=== PATIENT | male | born 1975 | race Caucasian/White ===

== ENCOUNTER 2025-06-30 10:32 | Emergency (ER) | payer OTHER, SELFPAY ==
[2025-06-30 10:41] VITALS: BP 149/98; PULSE 75; TEMP 36.8; O2SAT 98; BMI 30.6
--- NOTE | 2025-06-30 10:49 | XR_ITS ---
The [address] [address] Patient Name: TAMAR MARTINEZ MRN: [id number] date: 1975 Sex: M Assigned Patient Location: ER Current Patient Location: ED.MAIN Accession/Order Number: [id number] Exam Date: 06/30/2025 11:06 Report Date: 06/30/2025 11:09 At the request of: WILFRID KU MD Procedure: XR foot RT min 3V RIGHT FOOT - 3 views CLINICAL HISTORY: Lateral pain and swelling for one week. No known injury. COMPARISON: None FINDINGS: Soft tissue swelling is present. No acute bony process is seen. No bony erosions. XR/XR foot RT min 3V IMPRESSION: MILD SOFT TISSUE SWELLING WITHOUT ACUTE BONY PROCESS. Impression dictated by: Luis Pitts Jr. DJanaeOJanae 06/30/2025 11:09 AM Dictation Location: [place] [address] Electronically authenticated by: [id number] Y Date: 06/30/2025 11:09
--- NOTE | 2025-06-30 10:49 | ED_ITS ---
HPI HPI - Extremity Injury (Lower) General Chief Complaint: Extremity Injury, Lower Stated Complaint: LOWER EXTREMITY INJURY Time Seen by Provider: 06/30/25 10:44 Source: patient Mode of arrival: walk-in History of Present Illness HPI Narrative: The patient is a 49-year-old male coming to the ER with a right foot pain that started almost a week ago after he was trying a new to clinic and running in his forefoot first and the floor, the patient mentioned that he took few steps and after that started having pain No other injury no other concerns Related Data Previous Rx's ?Medication ?Instructions ?Recorded naproxen 375 mg tablet 375 mg PO BID PRN pain #20 t abs 06/30/25 Allergies Allergy/AdvReac Type Severity Reaction Status Date / Time No Known Drug Allergies Allergy Verified 06/30/25 10:40 Opioid HPI Opioid Management Most Recent Pain and Opioid Data: Last Pain Scale 9 Today, 10:44 Review of Systems ROS Status of ROS 10 or more systems reviewed and unremark able except as noted in history and below PFSH PFSH Social History Little interest or pleasure in doing things: not at all Feeling down, depressed, or hopeless: not at all Exam Narrative Exam Narrative: Nurses notes and vital signs reviewed and patient is not hypoxic. General: Well-appearing and in no apparent distress. Skin: Warm, dry, no pallor noted. Examination of the right foot: Showed that the patient have edema of the lateral aspect of the foot with no vascular injury detected no hotness and no open wound there is tenderness on palpation of the lateral metatarsals mostly at the 4th and 5th Constitutional Vital Signs, click to edit/add: Last Vital Signs Temp 98.3 F 06/30/25 10:41 Pulse 75 06/30/25 10:41 Resp 16 06/30/25 10:41 BP 149/98 H 06/30/25 10:41 Pulse Ox 98 06/30/25 10:41 O2 Del Method Room Air 06/30/25 10:41 Course Vital Signs Vital signs: Vital Signs Temperature 98.3 F 06/30/25 10:41 Pulse Rate 75 06/30/25 10:41 Respiratory Rate 16 06/30/25 10:41 Blood Pressure 149/98 H 06/30/25 10:41 Pulse Oximetry 98 06/30/25 10:41 Oxygen Delivery Method Room Air 06/30/25 10:41 Temperature 98.3 F 06/30/25 10:41 Pulse Rate 75 06/30/25 10:41 Respiratory Rate 16 06/30/25 10:41 Blood Pressure 149/98 H 06/30/25 10:41 Pulse Oximetry 98 06/30/25 10:41 Oxygen Delivery Method Room Air 06/30/25 10:41 MDM - Extremity Injury (Lower) MDM Narrative Medical decision making narrative: X-ray of the patient right foot shows some edema but there is no acute fracture The patient mentioned that he have a walking boot at home that he might be using which I recommended I did also provide him with a Luices wrap here in the ER and referred to podiatry as outpatient NSAIDs for pain and rest The patient is to follow up with primary care physician in next 2-3 days or to return to the emergency department should any of the signs or symptoms worsen or new symptoms develop. The patient agrees with the following Diagnosis and Treatment plan and the patient will be discharged home. Discharge Plan Discharge Chief Complaint: Extremity Injury, Lower Clinical Impression: Metatarsalgia, Acute foot pain Patient Disposition: Home, Self-Care Time of Disposition Decision: 11:36 Condition: Good Prescriptions / Home Meds: New naproxen 375 mg tablet 375 mg PO BID PRN (Reason: pain) Qty: 20 0RF Print Language: Gambian Instructions: Arthralgia (ED), Metatarsalgia (DC) Referrals: Physician,Non-Staff, MD [Primary Care Provider] - 1 week Ran Banuelos DPM [Physician, Podiatry] - 1 week Discharge Date/Time: 06/30/25 11:52
--- OUTSIDE RECORDS SUMMARY | 2025-06-30 10:51 | XMS_ITS | Encounter Summary ---
Author Organization [facility] Address [address] [place] [address] Care Team Providers Care Tar Heater Operator Name Role Phone Geoff Veliz MD Primary Care Provider [phone] Fatou Díaz APRN.LAND SALES AGENT Unavailable [phone] Source Comments In the event this information is protected by the Federal Confidentiality of Alcohol and Drug AbusePatient Records regulations: The Federal rules restrict any use of the information to criminally investigate or prosecute any alcohol or drug abuse patient.[facility] Encounter Details Date Type Department Care Team (Late st Contact Info) Description 06/13/2025 Patient Msg HOSP MAIN H060 [address] [place] [address] Provider, Ccf : Sign up to manage your digestive symptoms in between visits, covered by insurance Social History Tobacco Use Types Packs/Day Years Used Date Smoking Tobacco: Former Cigarettes 1.5 10 0 11/30/2001 - 11/30/2011 Smokeless Tobacco: Never Alcohol Use Standard Drinks/Week Comments Yes 0 (1 standard drink = 0.6 oz pur e alcohol) 2 beers weekly [facility] Utilities Answer Date Recorded In the past 12 months has eshtery, gas, oil, or water company threatened to shut off services in your home? No 01/30/2025 Social Connection and Isolat ion Panel [NHANES] Answer Date Recorded In a typical week, how many times do you talk on the phone with family, friends, or neighbors? More than three times a week 01/30/2025 How often do you get togethe r with friends or relatives? Once a week 01/30/2025 How often do you attend chur ch or orthodox services? Never 01/30/2025 Do you belong to any clubs o r organizations such as yazidism groups, unions, fraternal or athletic groups, or school groups? No 01/30/2025 How often do you attend meet ings of the clubs or organizations you belong to? Patient declined 01/30/2025 Are you , , di vorced, , never , or living with a partner? Living with partner 01/30/2025 AUDIT-C Answer Date Recorded Q1: How often do you have a drink containing alc ohol? 2-4 times a month 01/30/2025 Q2: How many drinks containi ng alcohol do you have on a typical day when you are drinking? 3 or 4 01/30/2025 Q3: How often do you have si x or more drinks on one occasion? Less than monthly 01/30/2025 Overall Financial Resource Strain (CARDIA) Answe r Date Recorded How hard is it for you to pa y for the very basics like food, housing, medical care, and heating? Not hard at all 01/30/2025 PHQ-2 Answer Date Recorded PHQ-2 score 2 01/30/2025 [facility] - Occupational Stress Questionnaire Answer Date Recorded Do you feel stress - tense, restless, nervous, or anxious, or unable to sleep at night because your mind is troubled all the time - these days? To some extent 01/30/2025 Exercise Vital Sign Answer Date Recorde d On average, how many days pe r week do you engage in moderate to strenuous exercise (like a brisk walk)? 2 days 01/30/2025 On average, how many minutes do you engage in exercise at this level? 30 min 01/30/2025 Hunger Vital Sign Answer Date Recorded Within the past 12 months, y ou worried that your food would run out before you got the money to buy more. Never true 01/31/20 25 Within the past 12 months, t he food you bought just didn't last and you didn't have money to get more. Never true 01/30/2025 PRAPARE - Transportation Answer Date Re corded In the past 12 months, has l ack of transportation kept you from medical appointments or from getting medications? No 04/2025 In the past 12 months, has l ack of transportation kept you from meetings, work, or from getting things needed for daily living? No 01/30/2025 Housing Stability Vital Sign Answer Esequiel e Recorded In the last 12 months, was t here a time when you were not able to pay the mortgage or rent on time? No 01/30/2025 Number of Times Moved in the Last Year Not on fi le 01/30/2025 Homeless in the Last Year Not on file 2024 Area Deprivation Index Answer Date Cristóbal rded National Score (1-100), lower number is lower ri sk 87 07/14/2023 State Score (1-10), lower number is lower risk 8 07/14/2023 Data from: https://www.neighborhoodatlas.medicine.[facility].edu/. 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 Answer Date of Assessment Author No 04/09/2014 3:19 PM Kaelyn Kirkpatrick (Corrina) (Hist), [place] * Are you blind or do you have serious difficulty seeing, even when wearing glasses? Answer Date of Assessment Author No 04/09/2014 3:19 PM Kaelyn Kirkpatrick (Corrina) (Hist), [place] * Do you have serious difficulty walking or climbing stairs? Answer Date of Assessment Author Yes 04/09/2014 3:19 PM Kaelyn Kirkpatrick (Corrina) (Hist), [place] * Do you have difficulty dressing or bathing? Answer Date of Assessment Author No 04/09/2014 3:19 PM Kaelyn Kirkpatrick) (Hist), [place] * Because of a physical, mental, or emotional condition, do you have difficulty doing errands alone such as visiting a doctor's office or shopping? Answer Date of Assessment Author No 04/09/2014 3:19 PM EDT Kaelyn Nickerson) (Hist)CORRINA documented as of this encounter Mental Status * Because of a physical, mental, or emotional condition, do you have serious difficulty concentrating, remembering, or making decisions? Answer Entry Date Author No 04/09/2014 3:19 PM EDT Kaelyn Nickerson) (Hist)CORRINA documented in this encounter Plan of Treatment Not on file documented as of this encounter Visit Diagnoses Not on filedocumented in this encounter Care Teams Tar Heater Operator Relationship Specialty Start Date End Date Geoff Veliz MD [address] [place] [address] PCP - General Internal Medicine 12/12/22 Fatou Díaz, MULTINEEDLE SHIRRER.[facility] [address] [place] [address] Edge Cutting Machine Operator Family Medicine 11/03/24 documented as of this encounter
--- OUTSIDE RECORDS SUMMARY | 2025-06-30 10:51 | XMS_ITS | Encounter Summary ---
Author Organization [facility] Address [address] [place] [address] Care Team Providers Care Wafer Fab Operator Name Role Phone Geoff Veliz MD Primary Care Provider [phone] Denise Herman PA-C Unavailable [phone] Fatou Díaz APRN.CIGAR TOBACCO PROCESSING SUPERVISOR Unavailable + [phone] Source Comments In the event this information is protected by the Federal Confidentiality of Alcohol and Drug AbusePatient Records regulations: The Federal rules restrict any use of the information to criminally investigate or prosecute any alcohol or drug abuse patient.[facility] Encounter Details Date Type Department Care Team (Late st Contact Info) Description 12/16/2022 Get Medical Advice Internal Medicine [address] [address] Geoff Veliz MD [address] [place], [place] [id number] Test Results Social History Tobacco Use Types Packs/Day Years Used Date Smoking Tobacco: Former Cigarettes 1.5 10 0 11/30/2001 - 11/30/2011 Smokeless Tobacco: Never Alcohol Use Standard Drinks/Week Comments Yes 0 (1 standard drink = 0.6 oz pur e alcohol) 2 beers weekly PHQ-2 Answer Date Recorded PHQ2 Score 0 08/29/2018 Area Deprivation Index Answer Date Cristóbal rded National Score (1-100), lower number is lower ri sk Not on file 11/01/2020 State Score (1-10), lower number is lower risk N ot on file 11/01/2020 Data from: https://www.neighborhoodatlas.medicine.[facility]/. 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 Answer Date of Assessment Author No 04/09/2014 3:19 PM EDT Kaelyn Nickerson (Josiah) (Hist), [place] * Are you blind or do you have serious difficulty seeing, even when wearing glasses? Answer Date of Assessment Author No 04/09/2014 3:19 PM EDT Kaelyn Nickerson (Josiah) (Hist), [place] * Do you have serious difficulty walking or climbing stairs? Answer Date of Assessment Author Yes 04/09/2014 3:19 PM Kaelyn Kirkpatrick (Josiah) (Hist), [place] * Do you have difficulty dressing or bathing? Answer Date of Assessment Author No 04/09/2014 3:19 PM EDT Kaelyn Nickerson (Josiah) (Hist), [place] * Because of a physical, mental, or emotional condition, do you have difficulty doing errands alone such as visiting a doctor's office or shopping? Answer Date of Assessment Author No 04/09/2014 3:19 PM JOET Kaelyn Nickerson (Josiah) (Hist), [place] documented as of this encounter Mental Status * Because of a physical, mental, or emotional condition, do you have serious difficulty concentrating, remembering, or making decisions? Answer Entry Date Author No 04/09/2014 3:19 PM Kaelyn Kirkpatrick (Josiah) (Hist), [place] documented in this encounter Plan of Treatment Not on file documented as of this encounter Visit Diagnoses Not on filedocumented in this encounter Care Teams Wafer Fab Operator Relationship Specialty Start Date End Date Geoff Veliz MD [address] [place] [address] PCP - General Internal Medicine 12/12/22 Denise Herman PA-C [facility] [place], [place] [phone] Margin Trimmer Internal Medicine 11/03/24 11/28/24 Fatou Díaz, LADLE OPERATOR.[facility] [address] [place] [address] [phone] Margin Trimmer Family Medicine 11/03/24 documented as of this encounter
--- OUTSIDE RECORDS SUMMARY | 2025-06-30 10:51 | XMS_ITS | Encounter Summary ---
Author Organization [facility] Address [address] [place] [address] Care Team Providers Care Orthopaedic Doctor Name Role Phone Juan Hansen MD Primary Care Provider [phone] Christiane Razo MD Primary Care Provider Geoff Veliz MD Primary Care Provider [phone] Denise Herman PA-C Unavailable [phone] Fatou Díaz APRN.PROGRAM ENGAGEMENT DIRECTOR Unavailable + [phone] Source Comments In the event this information is protected by the Federal Confidentiality of Alcohol and Drug AbusePatient Records regulations: The Federal rules restrict any use of the information to criminally investigate or prosecute any alcohol or drug abuse patient.[facility] Encounter Details Date Type Department Care Team (Late st Contact Info) Description 02/08/2013 Patient Msg Medical Records [facility] [place] [address] Provider, Ccf Social History Tobacco Use Types Packs/Day Years Used Date Smoking Tobacco: Former Cigarettes 1.5 10 0 12/09/2001 - 12/09/2011 Alcohol Use Standard Drinks/Week Comments No 0 (1 standard drink = 0.6 oz pure alcohol) more than a social drinker ( 30 to 40 per week) Sex and Gender Information Value Date Recorded Sex Assigned at Not on file Legal Sex Male 7:31 AM EST Gender Identity Not on file Sexual Orientation Not on file 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 Not on file Not on file documented as of this encounter Plan of Treatment Not on file documented as of this encounter Visit Diagnoses Not on filedocumented in this encounter Care Teams Orthopaedic Doctor Relationship Specialty Start Date End Date Juan Hansen MD PCP - General 07/01/05 08/31/20 [place] [id number] [facility] [address] [address] PCP - General Internal Medicine 09/01/20 12/11/22 Geoff Veliz MD [address] [place] [address] PCP - General Internal Medicine 12/12/22 Denise Herman PA-C [address] [place] [address] Patient Access Coordinator Internal Medicine 11/03/24 11/28/24 Fatou Díaz, BUDGET SPECIALIST.[facility] [address] [place] [address] Patient Access Coordinator Family Medicine 11/03/24 documented as of this encounter
--- OUTSIDE RECORDS SUMMARY | 2025-06-30 10:51 | XMS_ITS | Encounter Summary ---
Author Organization [facility] Address [address] [place] [address] Care Team Providers Care Hvac/R Service Technician Name Role Phone Geoff Veliz MD Primary Care Provider [phone] Denise Herman PA-C Unavailable [phone] Fatou Díaz APRN.MORTGAGE OPERATIONS MANAGER Unavailable [phone] Source Comments In the event this information is protected by the Federal Confidentiality of Alcohol and Drug AbusePatient Records regulations: The Federal rules restrict any use of the information to criminally investigate or prosecute any alcohol or drug abuse patient.[facility] Encounter Details Date Type Department Care Team (Late st Contact Info) Description 12/15/2022 Abstract Neurology [address] [place] [address] Main, Sleep Center [address] [place] [phone] Social History Tobacco Use Types Packs/Day Years [...] N ot on file 11/01/2020 Data from: https://www.neighborhoodatlas.medicine.[facility]/. 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 Answer Date of Assessment Author No 04/09/2014 3:19 PM Kaelyn Kirkpatrick (Corrina) (Hist)CORRINA * Are you blind or do you have serious difficulty seeing, even when wearing glasses? Answer Date of Assessment Author No 04/09/2014 3:19 PM Kaelyn Kirkpatrick (Corrina) (Hist), [place] * Do you have serious difficulty walking or climbing stairs? Answer Date of Assessment Author Yes 04/09/2014 3:19 PM EDT Kaelyn Nickerson (Corrina) (Hist), [place] * Do you have difficulty dressing or bathing? Answer Date of Assessment Author No 04/09/2014 3:19 PM Kaelyn Kirkpatrick (Corrina) (Hist), [place] * Because of a physical, mental, or emotional condition, do you have difficulty doing errands alone such as visiting a doctor's office or shopping? Answer Date of Assessment Author No 04/09/2014 3:19 PM Kaelyn Kirkpatrick (Corrina) (Hist), [place] documented as of this encounter Mental Status * Because of a physical, mental, or emotional condition, do you have serious difficulty concentrating, remembering, or making decisions? Answer Entry Date Author No 04/09/2014 3:19 PM Kaelyn Kirkpatrick (Corrina) (Hist), CORRINA documented in this encounter Plan of Treatment Not on file documented as of this encounter Visit Diagnoses Not on filedocumented in this encounter Care Teams Hvac/R Service Technician Relationship Specialty Start Date End Date Geoff Veliz MD [address] [place] [id number] PCP - General Internal Medicine 12/12/22 Denise Herman PA-C [address] [place] [address] Shuttle Van Driver Internal Medicine 11/03/24 11/28/24 Fatou Díaz, ASSEMBLY LINE MACHINE OPERATOR.[facility] [address] [place] [id number] Shuttle Van Driver Family Medicine 11/03/24 documented as of this encounter
--- OUTSIDE RECORDS SUMMARY | 2025-06-30 10:51 | XMS_ITS | Encounter Summary ---
Author Organization [facility] Address [address] [place] [address] Care Team Providers Care Rare/Endangered Species Specialist Name Role Phone Geoff Veliz MD Primary Care Provider [phone] Denise Herman PA-C Unavailable [phone] Fatou Díaz APRN.BIODIESEL PRODUCT MANAGER Unavailable [phone] Source Comments In the event this information is protected by the Federal Confidentiality of Alcohol and Drug AbusePatient Records regulations: The Federal rules restrict any use of the information to criminally investigate or prosecute any alcohol or drug abuse patient.[facility] Encounter Details Date Type Department Care Team (Late st Contact Info) Description 06/05/2024 Patient Msg Internal Medicine [facility] [address] [place] [address] Geoff Veliz MD [address] [place], [place] [phone] Appointment Request Social History Tobacco Use Types Packs/Day Years [...] is lower risk 8 07/14/2023 Data from: https://www.neighborhoodatlas.medicine.[facility].edu/. 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
--- OUTSIDE RECORDS SUMMARY | 2025-06-30 10:51 | XMS_ITS | Encounter Summary ---
Author Organization [facility] Address [address] [place] [address] Care Team Providers Care Sandwich And Drink Cart Operator Name Role Phone Geoff Veliz MD Primary Care Provider [phone] Denise Herman PA-C Unavailable [phone] Fatou Díaz APRN.CHIEF LIBRARIAN CIRCULATION DEPARTMENT Unavailable + [phone] Source Comments In the event this information is protected by the Federal Confidentiality of Alcohol and Drug AbusePatient Records regulations: The Federal rules restrict any use of the information to criminally investigate or prosecute any alcohol or drug abuse patient.[facility] Encounter Details Date Type Department Care Team (Late st Contact Info) Description 11/30/2023 Patient Msg Internal Medicine [facility] [address] [place] [address] Geoff Veliz MD [address] [place], [place] [phone] Appointment Request (HM) Social History Tobacco Use Types Packs/Day Years [...] is lower risk 8 07/14/2023 Data from: https://www.neighborhoodatlas.[facility]/. 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 Not on file [...] Yes 04/09/2014 3:19 PM EDT Kaelyn Nickerson (Josiah) [...] PM EDT Kaelyn Nickerson (Josiah) (Hist), [place] documented as [...] on filedocumented in this encounter Care Teams Sandwich And Drink Cart Operator Relationship Specialty Start Date End Date Geoff Veliz MD [address] [place] [address] PCP - General Internal Medicine 12/12/22 Denise Herman PA-C [address] [place], [place] [phone] Grazing Examiner Internal Medicine 11/03/24 11/28/24 Fatou Díaz, PROFESSOR OF MEDICINE.[facility] [address] [place] [address] [phone] Grazing Examiner Family Medicine 11/03/24 documented as of this encounter
--- OUTSIDE RECORDS SUMMARY | 2025-06-30 10:52 | XMS_ITS | Clinical Summary ---
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/2017 Genital herpes, unspecified Anxiety state, unspecified Encounters Date Type Department Care Team Description 06/13/2025 Patient Msg HOSP MAIN H060 [address] [place] [address] Provider, Ccf : Sign up to manage your digestive symptoms in between visits, covered by insurance from Last 3 Months Immunizations Immunization Administration Dates Next Due COVID-19 vaccine (ANANT) 04/16/2021 tetanus diphtheria pertussis (Tdap) vaccine, age 7+ yr (ADACEL, BOOSTRIX) 03/15/2019 Family History Medical History Relation Comments None Brother Cancer Father prostate - dx 55 longevity Maternal Grandfather longevity Maternal Grandmother None Mother alzeheimer's dementia Paternal Grandfather dm Paternal Grandfather None Sister ADD/ADHD Son Colon Cancer No Family History Relation Status Comments Brother Alive Father Alive Maternal Grandfather Maternal Grandmother Mother Alive Paternal Grandfather Paternal Grandmother Sister Alive Son Social History Tobacco Use Types Packs/Day Years Used Date Smoking Tobacco: Former Cigarettes 1.5 10 0 11/30/2001 - 11/30/2011 Smokeless Tobacco: Never Tobacco Cessation:Counseling Given: Not Answered Alcohol Use Standard Drinks/Week Comments Yes 0 (1 standard drink = 0.6 oz pur e alcohol) 2 beers weekly [facility] Utilities Answer Date Recorded In the past 12 months has e [employer], gas, oil, or water company threatened to [...] often do you attend chur ch or scientologist services? Never 01/30/2025 Do you belong to any clubs o r organizations such as shinto groups, unions, fraternal or athletic groups, or [...] Answer Date Recorded PHQ-2 score 2 01/30/2025 [facility] [place] of Occupat ional Health - Occupational Stress [...] is lower risk 8 07/14/2023 Data from: https://www.neighborhoodatlas.medicine.[facility].edu/. Last address used for calculation 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 Not on file Not on file Last Filed Vital Signs Vital Sign Reading Time Taken Comments Blood Pressure 117/76 03/07/2025 11:00 AM EDT Pulse 62 03/07/2025 11:00 AM EDT Temperature 36.7 C (98.1 F) 03/07/2025 9:56 AM EDT Respiratory Rate 14 03/07/2025 11:00 AM EDT Oxygen Saturation 95% 03/07/2025 11:00 AM EDT Inhaled Oxygen Concentration - - Weight 113.4 kg (250 lb) 03/07/2025 9:56 AM EDT Height 198.1 cm (6' 6 ) 03/07/2025 9:56 AM EDT Body Mass Index 28.89 03/07/2025 9:56 AM EDT Plan of Treatment Health Maintenance Due Date Last Done Comments Depression Screening 1995 Hepatitis C Screening 1995 Hepatitis B Vaccine (1 of 3 - 19+ 3-dose series) 1996 CT Colonography 2022 Cologuard (FIT-DNA) 2022 Fecal Occult Blood 2022 Sigmoidoscopy 2022 Influenza Vaccine (#1) 2025 Diabetes Screening 02/01/2028 01/31/2025, 0 12/12/2022, 08/29/2018, Additional history exists DTaP,Tdap,Td Vaccine (2 - Td or Tdap) 03/15/2029 03/15/2019 Lipid Screening 01/31/2030 01/31/2025, 12/12/2022 Colonoscopy 03/07/2030 03/07/2025 Colorectal Cancer Screening 03/07/2030 HIV Screening Completed 02/02/2013, 07/19/2005 Procedures Procedure Name Priority Date/Time Associated Diagnosis Comments COLONOSCOPY SCREENING Routine 03/07/2025 10:10 AM EDT Screening for colon cancer COMPREHENSIVE METABOLIC PANEL Routine 01/31/2025 3:01 PM EST Well adult exam LIPID PANEL, FASTING Routine 01/31/2025 3:01 PM EST Well adult exam HIV 1/2 COMBO WITH REFLEX TO DIFFERENTIATION Routine 02/02/2013 10:17 AM EST Canker sores oral from Last 3 Months or Most Recently Relevant to Health Maintenance Results * COLONOSCOPY SCREENING (03/07/2025 10:10 AM EDT) Anatomical Region Laterality Modality Other 03/07/2025 10:1 0 AM EDT [facility] 03/07/2025 10:47 AM EDT [facility] Gastrointestinal Endoscopy Patient Name: Don Dawkins Procedure Date: 03/07/2025 10:10 AM Date of : 1975 Admit Type: Outpatient Age: 49 Gender: Male Note Status: Finalized Attending MD: Avinash Valente Jr, MD, [id number] Procedure: Colonoscopy Indications: Screening for colorectal malignant neoplasm Providers: Avinash Valente Jr, MD Patient Profile: Last Colonoscopy: none. The patient's first colonoscopy is today. Referring Physician: Geoff Veliz MD (Referring MD) Medicines: Monitored Anesthesia Care Complications: No immediate complications. Requesting Provider: Procedure: Pre-Anesthesia Assessment: - Prior to the procedure, a History and Physical was performed, and patient medications and allergies were reviewed. The patient's tolerance of previous anesthesia was also reviewed. The risks and benefits of the procedure and the sedation options and risks were discussed with the patient. All questions were answered, and informed consent was obtained. Prior Anticoagulants: The patient has taken no anticoagulant or antiplatelet agents. ASA Grade Assessment: II - A patient with mild systemic disease. After reviewing the risks and benefits, the patient was deemed in satisfactory condition to undergo the procedure. After I obtained informed consent, the scope was passed under direct vision. Throughout the procedure, the patient's blood pressure, pulse, and oxygen saturations were monitored continuously. The Colonoscope was introduced through the anus and advanced to the cecum, identified by appendiceal orifice and ileocecal valve. The colonoscopy was performed with ease. The patient tolerated the procedure well. The ileocecal valve, appendiceal orifice, and rectum were photographed. The quality of the bowel preparation was good. Scope Withdrawal Time: 0 hours 9 minutes 23 seconds Total Procedure Duration: 0 hours 13 minutes 35 seconds Findings: No masses on digital rectal exam A 7 mm polyp was found in the transverse colon. The polyp was sessile. The polyp was removed with a cold snare. Resection and retrieval were complete. Scattered diverticula were found in the sigmoid colon. The exam was otherwise normal throughout the examined colon. Moderate Sedation: MAC anesthesia was administered by the anesthesia team. Impression: - One 7 mm polyp in the transverse colon, removed with a cold snare. Resected and retrieved. - Diverticulosis in the sigmoid colon. Recommendation: - Repeat colonoscopy date to be determined after pending pathology results are reviewed for surveillance. - If the pathology report reveals adenomatous tissue, then repeat the colonoscopy in 5 years. - Patient has a contact number available for emergencies. The signs and symptoms of potential delayed complications were discussed with the patient. Return to normal activities tomorrow. Written discharge instructions were provided to the patient. - Resume previous diet. - Continue present medications. Procedure Code(s): --- Professional --- 66081, Colonoscopy, flexible; with removal of tumor(s), polyp(s), or other lesion(s) by snare technique Diagnosis Code(s): --- Professional --- Z12.11, Encounter for screening for malignant neoplasm of colon D12.3, Benign neoplasm of transverse colon (hepatic flexure or splenic flexure) K57.30, Diverticulosis of large intestine without perforation or abscess without bleeding CPT copyright 2020 [place] [employer]. All rights reserved. The codes documented in this report are preliminary and upon radar signal processing engineer review may be revised to meet current compliance requirements. Attending Participation: I personally performed the entire procedure. MD Avinash Wray Jr, MD 03/07/2025 10:45:14 AM This report has been signed electronically by Avinash Valente Jr, MD Number of Addenda: 0 Note Initiated On: 03/07/2025 10:10 AM Procedure Start: 10:27:23 AM Procedure End: 10:40:58 AM Geoff Veliz MD DIGESTIVE DISEASE Final Result * (ABNORMAL) LIPID PANEL BASIC (01/31/2025 3:01 PM EST) Cholesterol, Total 181 <200 mg/dL 01/31/2025 11:59 PM EST [facility] Comment: <200 mg/dL, Desirable 200-239 mg/dL, Borderline high >239 mg/dL, High Triglyceride 152(H) <150 mg/dL 01/31/2025 11:59 PM EST [facility] Comment: <150 mg/dL, Normal 150-199 mg/dL, Borderline high 200-499 mg/dL, High >499 mg/dL, Very high HDL Cholesterol 40 >39 mg/dL 11:59 PM [facility] Comment: 40-59 mg/dL, Acceptable >59 mg/dL, High: Negative risk factor for coronary heart disease <40 mg/dL, Low: Positive risk factor for coronary heart disease Non HDL Cholesterol 141(H) <130 mg/dL 01/31/2025 11:59 PM [facility] Comment: <130 mg/dL, Optimal 130-159 mg/dL, Near optimal/above optimal 160-189 mg/dL, Borderline high 190-219 mg/dL, High >219 mg/dL, Very high Secondary prevention optimal non HDL Cholesterol levels are recommended to be <100 mg/dL Fasting Time 3 hrs 01/31/2025 11:59 PM [facility] VLDL Cholesterol 30(H) <30 mg/dL 02/01/20 11:59 PM [facility] TC:HDL Ratio 4.53 <5.10 01/31/2025 11:59 PM [facility] LDL Cholesterol, Calculated 111(H) <100 mg/dL 01/31/2025 11:59 PM [facility] Comment: <100 mg/dL, Optimal 100-129 mg/dL, Near optimal/above optimal 130-159 mg/dL, Borderline high 160-189 mg/dL, High >189 mg/dL, Very high Secondary prevention optimal LDL Cholesterol levels are recommended to be < 70 mg/dL LDL:HDL Ratio 2.78(H) <2.54 01/31/2025 11:59 PM [facility] Comment: Reference: 1. National Cholesterol Education Program ATP III Guideline At-A-Glance Quick Desk Reference: National Heart, Lung, and Blood [place]. National Institutes of Health. 2001: NIH Publication No. 01-3305. 2. An International Atherosclerosis Society position paper: global recommendations for the management of dyslipidemia: executive summary, Atherosclerosis. 2014: 232(2):410-413. Blood BLOOD SPECIMEN / Unknown Venipuncture / Unknown 01/31/2025 3:01 PM EST 01/31/2025 3:01 PM EST Geoff Veliz MD LABORATORY Final Result [facility] [address] [facility] [address] [id number], [place] * (ABNORMAL) COMPREHENSIVE METABOLIC PANEL (01/31/2025 3:01 PM EST) [facility] Protein, Total 8.2(H) 6.3 - 8.0 g/dL 01/31/2025 11:59 PM EST [facility] Albumin 4.9 3.9 - 4.9 g/dL 01/31/2025 11:59 PM EST [facility] Calcium, Total 10.5(H) 8.5 - 10.2 mg/dL 01/31/2025 11:59 PM EST [facility] Bilirubin, Total 0.8 0.2 - 1.3 mg/dL 01/31/2025 11:59 PM EST [facility] Alkaline Phosphatase 75 38 - 113 U/L 01/31/2025 11:59 PM EST [facility] AST 25 14 - 40 U/L 01/31/2025 11:59 PM EST [facility] ALT 15 10 - 54 U/L 01/31/2025 11:59 PM EST [facility] Glucose 105(H) 74 - 99 mg/dL 01/31/2025 11:59 PM EST [facility] Comment: The [place] Diabetes Association (ADA) provides guidance for cutoff values for fasting glucose and random glucose. The ADA defines fasting as no caloric intake for at least 8 hours. Fasting plasma glucose results between 100 to 125 mg/dL indicate increased risk for diabetes (prediabetes). Fasting plasma glucose results greater than or equal to 126 mg/dL meet the criteria for diagnosis of diabetes. In the absence of unequivocal hyperglycemia, results should be confirmed by repeat testing. In a patient with classic symptoms of hyperglycemia or hyperglycemic crisis, random plasma glucose results greater than or equal to 200 mg/dL meet the criteria for diagnosis of diabetes. Reference: Standards of Medical Care in Diabetes 2016, [place] [employer] Association. Diabetes Care. 2016.39(Suppl 1). BUN 17 9 - 24 mg/dL 01/31/2025 11:59 PM EST [facility] Creatinine 1.28(H) 0.73 - 1.22 mg/dL 01/31/2025 11:59 PM EST [facility] Sodium 140 136 - 144 mmol/L 01/31/2025 11:59 PM EST [facility] Potassium 4.2 3.7 - 5.1 mmol/L 01/31/2025 11:59 PM EST [facility] Chloride 101 98 - 107 mmol/L 01/31/2025 11:59 PM EST [facility] CO2 26 22 - 30 mmol/L 01/31/2025 11:59 PM EST [facility] Anion Gap 13 8 - 15 mmol/L 01/31/2025 11:59 PM EST [facility] Estimated Glomerular Filtration Rate 69 >=60 mL/min/1. 73m 01/31/2025 11:59 PM EST [facility] Comment:Estimated Glomerular Filtration Rate (eGFR) is calculated using the 2020 CKD-EPI creatinine equation. This equation utilizes serum creatinine, sex, and age as parameters. The creatinine assay has traceable calibration to isotope dilution- mass spectrometry. Refer to KDIGO guidelines for clinical interpretation. In patients with unstable renal function, e.g. those with acute kidney injury, the eGFR may not accurately reflect actual GFR. Blood BLOOD SPECIMEN / Unknown Venipuncture / Unknown 01/31/2025 3:01 PM EST 01/31/2025 3:01 PM EST us Geoff Veliz MD LABORATORY Final Result [facility] [address] [place] [address], * HIV AB 1&2 SCREEN (02/02/2013 10:17 AM EST) HIV 1 & 2 Ab (EIA) Non Reactive NR [facility] Comment: If results are indeterminate or otherwise inconsistent with an individual's clinical presentation or risk profile for HIV infection a repeat specimen is requested. A repeat specimen is also recommended for any individual identified positive for the first time. (NOTE) HIV Information: [place] Rev. Code 3701.243(E): This information has been disclosed to you from confidential records protected from disclosure by state law. You shall make no further disclosure of this information without the specific, written, and informed release of the individual to whom it pertains, or as otherwise permitted by state law. A general authorization for the release of medical or other information is not sufficient for the purpose of the release of HIV test results or diagnoses. Blood specimen (specimen) BLOOD SPECIMEN / Unknown 02/02/2013 10:17 AM EST 02/02/2013 10:22 AM EST us Marian Beck MD LABORATORY Final Result [facility] [address] [address] from Last 3 Months or Most Recently Relevant to Health Maintenance [facility] Care Teams Air/Ocean Export Clerk Relationship Specialty Start Date End Date Geoff Veliz MD [address] [place] [address] PCP - General Internal Medicine 12/12/22 Fatou Díaz, PROFESSIONAL WRESTLER.IMAGING ADMINISTRATOR [address] [place] [address] Wardrobe Specialty Worker Family Medicine 11/03/24
--- OUTSIDE RECORDS SUMMARY | 2025-06-30 10:52 | XMS_ITS | Encounter Summary ---
Author Organization [facility] Address [facility] [place] [address] Care Team Providers Care Systematic Theology Professor Name Role Phone Geoff Veliz MD Primary Care Provider [phone] Fatou Díaz APRN.HOTEL RESERVATION AGENT Unavailable [phone] Source Comments In the event this information is protected by the Federal Confidentiality of Alcohol and Drug AbusePatient Records regulations: The Federal rules restrict any use of the information to criminally investigate or prosecute any alcohol or drug abuse patient.[facility] Encounter Details Date Type Department Care Team (Late st Contact Info) Description 02/27/2025 GI Preprocedure Call [facility] [place] [address] [address] [address] Avinash Valente Jr., MD [address] [place] [address] Social History Tobacco Use Types Packs/Day Years Used Date Smoking Tobacco: Former Cigarettes 1.5 10 0 11/30/2001 - 11/30/2011 Smokeless Tobacco: Never Alcohol Use Standard Drinks/Week Comments Yes 0 (1 standard drink = 0.6 oz pur e alcohol) 2 beers weekly [facility] Utilities Answer Date Recorded In the past 12 months has th e electric, gas, oil, or water company threatened to [...] 01/30/2025 How often do you attend chur or muslim services? Never 01/30/2025 Do you belong to any clubs o r organizations such as christianity groups, unions, fraternal or athletic groups, or [...] Answer Date Recorded PHQ-2 score 2 01/30/2025 [facility] of Occupat ional Health - Occupational Stress [...] is lower risk 8 07/14/2023 Data from: https://www.neighborhoodatlas.medicine.[facility].edu/. 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 Answer Date of Assessment Author No 04/09/2014 3:19 PM Kaelyn Kirkpatrick (Corrina) (Hist), CORRINA * Are you blind or do you [...] 04/09/2014 3:19 PM EDT Kaelyn Nickerson) (Hist)CORRINA * Because of a physical, mental, or [...] on filedocumented in this encounter Care Teams Systematic Theology Professor Relationship Specialty Start Date End Date Geoff Veliz MD [address] [place] [address] PCP - General Internal Medicine 12/12/22 Fatou Díaz, BODY ARTIST.HOTEL RESERVATION AGENT [address] [place] [address] Desk Lieutenant Family Medicine 11/03/24 documented as of this encounter
--- OUTSIDE RECORDS SUMMARY | 2025-06-30 10:52 | XMS_ITS | Encounter Summary ---
Author Organization [facility] Address [address] [place] [address] Care Team Providers Care Mending Carrier Name Role Phone Geoff Veliz MD Primary Care Provider [phone] Fatou Díaz APRN.DAYCARE TEACHER Unavailable [phone] Source Comments In the event this information is protected by the Federal Confidentiality of Alcohol and Drug AbusePatient Records regulations: The Federal rules restrict any use of the information to criminally investigate or prosecute any alcohol or drug abuse patient.[facility] Encounter Details Date Type Department Care Team (Late st Contact Info) Description 02/05/2025 Patient [facility] [address] [address] Hortencia Vaz RPh At your next appointment, choose [facility]. Social History Tobacco Use Types Packs/Day Years Used Date Smoking Tobacco: Former Cigarettes 1.5 10 0 11/30/2001 - 11/30/2011 Smokeless Tobacco: Never Alcohol Use Standard Drinks/Week Comments Yes 0 (1 standard drink = 0.6 oz pur e alcohol) 2 beers weekly [facility] Utilities Answer Date Recorded In the past 12 months has [employer] electric, gas, oil, or water company threatened [...] often do you attend chur ch or sabianist services? Never 01/30/2025 Do you belong to any clubs o r organizations such as caodaism groups, unions, fraternal or athletic groups, or [...] Answer Date Recorded PHQ-2 score 2 01/30/2025 [facility] of Occupat iontx Health - Occupational Stress Questionnaire Answer Date [...] is lower risk 8 07/14/2023 Data from: https://www.neighborhoodatlas.medicine.[facility].edu/. 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 Answer Date of Assessment Author No 04/09/2014 3:19 PM Kaelyn Kirkpatrick) (Hist), [place] * Are you blind or do you have serious difficulty seeing, even when wearing glasses? Answer Date of Assessment Author No 04/09/2014 3:19 PM Kaelyn Kirkpatrick (Corrina) (Hist), [place] * Do you have serious difficulty walking or climbing stairs? Answer Date of Assessment Author Yes 04/09/2014 3:19 PM Kaelyn Kirkpatrick) (Hist), [place] * Do you have difficulty dressing or bathing? Answer Date of Assessment Author No 04/09/2014 3:19 PM Kaelyn Kirkpatrick) (Hist), [place] * Because of a physical, mental, or emotional condition, do you have difficulty doing errands alone such as visiting a doctor's office or shopping? Answer Date of Assessment Author No 04/09/2014 3:19 PM EDT Kaleyn Nickerson (Corrina) (Hist)[place] documented as of this encounter Mental [...] on filedocumented in this encounter Care Teams Mending Carrier Relationship Specialty Start Date End Date Geoff Veliz MD [address] [place] [address] PCP - General Internal Medicine 12/12/22 Fatou Díaz, BOLT SORTER.[facility] [address] [place] [address] Financial Aid Administrator Family Medicine 11/03/24 documented as of this encounter
--- OUTSIDE RECORDS SUMMARY | 2025-06-30 10:52 | XMS_ITS | Encounter Summary ---
Author Organization [facility] Address [address] [place] [address] Care Team Providers Care Sink Maker Name Role Phone Geoff Veliz MD Primary Care Provider [phone] Fatou Díaz APRN.ELECTRON BEAM PHOTO MASK TECHNICIAN Unavailable + [phone] Source Comments In the event this information is protected by the Federal Confidentiality of Alcohol and Drug AbusePatient Records regulations: The Federal rules restrict any use of the information to criminally investigate or prosecute any alcohol or drug abuse patient.[facility] Encounter Details Date Type Department Care Team (Late st Contact Info) Description 02/27/2025 Patient Msg [facility] [address] [address] Provider, Janey Carrasco Instructions Social History Tobacco Use Types Packs/Day Years Used Date Smoking Tobacco: Former Cigarettes 1.5 10 0 11/30/2001 - 11/30/2011 Smokeless Tobacco: Never Alcohol Use Standard Drinks/Week Comments Yes 0 (1 standard drink = 0.6 oz pur e alcohol) 2 beers weekly [facility] Utilities Answer Date Recorded In the past 12 months has [employer], gas, oil, or water company threatened [...] often do you attend chur ch or druze services? Never 01/30/2025 Do you belong to any clubs o r organizations such as tenriism groups, unions, fraternal or athletic groups, or [...] Answer Date Recorded PHQ-2 score 2 01/30/2025 [facility] - Occupational Stress Questionnaire Answer Date Recorded [...] is lower risk 8 07/14/2023 Data from: https://www.neighborhoodatlas.medicine.[facility].edu/. 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 Answer Entry Date Author No 04/09/2014 3:19 PM Kaelyn Kirkpatrick) (Hist)CORRINA documented in this encounter Plan of Treatment Not on file documented as of this encounter Visit Diagnoses Not on filedocumented in this encounter Care Teams Sink Maker Relationship Specialty Start Date End Date Geoff Veliz MD [address] [place] [address] PCP - General Internal Medicine 12/12/22 Fatou Díaz, AUTOBODY TECHNICIAN.[facility] [address] [place] [address] Collision Worker Family Medicine 11/03/24 documented as of this encounter
--- OUTSIDE RECORDS SUMMARY | 2025-06-30 10:52 | XMS_ITS | Encounter Summary ---
Author Organization [facility] Address [address] [place] [address] Care Team Providers Care Finishing Powder Press Operator Name Role Phone Juan Hansen MD Primary Care Provider [phone] Christiane Razo MD Primary Care Provider Geoff Veliz MD Primary Care Provider [phone] Denise Herman PA-C Unavailable [phone] Fatou Díaz APRN.CITY LIBRARY DIRECTOR Unavailable + [phone] Source Comments In the event this information is protected by the Federal Confidentiality of Alcohol and Drug AbusePatient Records regulations: The Federal rules restrict any use of the information to criminally investigate or prosecute any alcohol or drug abuse patient.[facility] Encounter Details Date Type Department Care Team (Late st Contact Info) Description 10/13/2017 Patient Msg Internal Medicine [address] [place] [address] Provider, [facility] appointment Social History Tobacco Use Types Packs/Day Years Used Date Smoking Tobacco: Former Cigarettes 1.5 10 0 11/30/2001 - 11/30/2011 Smokeless Tobacco: Never Alcohol Use Standard Drinks/Week Comments Yes 0 (1 standard drink = 0.6 oz pur e alcohol) 10 beers weekly Sex and Gender Information Value Date Recorded Sex Assigned at Not on file Legal Sex Male 7:31 AM EST Gender Identity Not on file Sexual Orientation Not on file 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 Not on file Not [...] No 04/09/2014 3:19 PM EDT Kaelyn Nickerson (Ma) (Hist), [place] * Do you have serious [...] EDT Kaelyn Nickerson (Josiah) (Hist), [place] documented in this encounter Plan of Treatment Not on file documented as of this encounter Visit Diagnoses Not on filedocumented in this encounter Care Teams Finishing Powder Press Operator Relationship Specialty Start Date End Date Juan Hansen MD PCP - General 07/01/05 08/31/20 [place] [id number] [address] PCP - General Internal Medicine 09/01/20 12/11/22 Geoff Veliz MD [address] [place] [address] PCP - General Internal Medicine 12/12/22 Denise Herman PA-C [facility] [place] [address] [facility] Internal Medicine 11/03/24 11/28/24 Fatou Díaz, FILM TECHNICIAN.[facility] [address] [place] [address] [facility] Family [facility] 11/03/24 documented as of this encounter
== END 2025-06-30 11:52 | disposition home or self-care (01) ==
PROVIDERS: Emergency Provider Emergency Medicine
DX: M77.41 Metatarsalgia, right foot (principal); M79.671 Pain in right foot
CPT/HCPCS: 73630; 99283